=== PATIENT | male | born 1955 | race Caucasian/White ===

== ENCOUNTER 2017-02-26 13:16 | Day surgery (SDC) | payer OTHER ==
[~2017-02-26] VITALS: Ht 175.3 cm; Wt 101.8 kg
[~2017-02-26 13:16] MED LIST: AMLO-147 PO; ASPI81TA3 PO; ATOR20TA65 PO; CARV25TA79 PO; CHOL50009 PO; LISI10TA2 PO; PRAV40TA76 PO
[2017-02-26 14:54] VITALS: Ht 175.3 cm; Wt 101.8 kg
[2017-02-26 15:20] VITALS: BP 143/81; PULSE 71; RESP 22
[2017-02-26] MEDS ORDERED: PROPOFOL 20 ML ONE (15:54)
[2017-02-26 16:47] VITALS: BP 144/85; PULSE 70; RESP 12
--- NOTE | 2017-02-26 17:04 | GILP ---
DATE OF PROCEDURE: NAME OF PROCEDURES: 1. Colonoscopy and polypectomy. 2. Clipping of the polypectomy site to prevent bleeding. INDICATION FOR THE PROCEDURE: Mr. Lawanda Short is a 61-year-old male patient who noticed a c hange in the bowel habit with rectal bleeding. The patient was scheduled for colonoscopy for [facility] evaluation. The procedure and possible complications are well explained to the patient, he understood and consen breonna to the procedure. DESCRIPTION OF PROCEDURE: Under the influence of anesthesia, the colonoscope was carefully introduc ed in the rectum and under direct vision, it was advanced all the way to the cecum. FINDINGS: The patient had a large sigmoid colon polyp at 30 cm from the anus and it was removed usi ng the snare and electrocautery. The patient had heart disease and he was on aspirin so clipping of the polypectomy site was done to prevent bleeding. The patient was noted to have internal hemorrho ids. He tolerated the procedure very well and there was no complication from the procedure. At the end o f the procedure, he was awake with stable vital signs and he was discharged home to the care of his family. IMPRESSION: 1. Colonoscopy all the way to the cecum. 2. Sigmoid colon polyp was removed using the snare and electrocautery. 3. Clipping of the polypectomy site was done to prevent bleeding because the patient is on aspirin because of heart disease. 4. Internal hemorrhoids. PLAN: 1. Anusol-HC 2.5% cream at bedtime p.r.n. 2. Await histopathology report. 3. Followup colonoscopy in 5 years. Dictated By: VIDHYA PALMER/DAFNE Conf#: [id number] DID#: [id number]
== END 2017-02-26 17:30 | disposition home or self-care (01) ==
LOC: GIL 13:16
PROVIDERS: ATTEND Internal Medicine Gastroenterology
DX: Z12.11 Encounter for screening for malignant neoplasm of colon (principal); D12.5 Benign neoplasm of sigmoid colon; I25.10 Atherosclerotic heart disease of native coronary artery without angina pectoris; E78.5 Hyperlipidemia, unspecified; I10 Essential (primary) hypertension; Z95.1 Presence of aortocoronary bypass graft
CPT/HCPCS: 88305

== ENCOUNTER 2017-03-05 09:57 | Day surgery (SDC) | payer OTHER ==
[~2017-03-05] VITALS: Ht 175.3 cm; Wt 102.2 kg
[~2017-03-05 09:57] MED LIST changes: -PRAV40TA76 PO
[2017-03-05] MEDS ORDERED: AMLO1CAP12 PO (10:49)
[2017-03-05] MEDS ORDERED: ALBU8.5H3 INH (10:53)
[2017-03-05] MEDS ORDERED: ACLI400A2 IH (10:56)
[2017-03-05] MEDS ORDERED: ERGO2000 PO (10:56)
[2017-03-05] MEDS ORDERED: CARV25TA79 PO (10:57)
[2017-03-05] MEDS ORDERED: PRAV40TA76 PO (10:57)
[2017-03-05 11:10] VITALS: Ht 175.3 cm; Wt 102.2 kg
[2017-03-05 11:13] VITALS: BP 132/85; PULSE 72; RESP 16
== END 2017-03-05 11:20 | disposition home or self-care (01) ==
LOC: SDS 09:57
PROVIDERS: ATTEND Otolaryngology
DX: J34.2 Deviated nasal septum (principal); Z53.9 Procedure and treatment not carried out, unspecified reason

== ENCOUNTER 2017-05-25 10:28 | Inpatient (IN) | payer OTHER ==
[~2017-05-25] VITALS: Ht 175.3 cm; Wt 104.5 kg
[~2017-05-25 10:28] MED LIST changes: +ACLI400A2 IH; +ALBU8.5H3 INH; +AMLO1CAP12 PO; +AMLO5TAB4 PO; +ATEN50TA PO; +ATOR20TA38 PO; +BUME1TAB18 PO; +DEXL60CA2 PO; +ERGO2000 PO; +FURO-109 PO; +LISI-523 PO; +METO-448 PO; +POTA8TAB2 PO; +PRAV10TA43 PO; +PRAV40TA76 PO
[2017-05-25] MEDS ORDERED: ALBUTEROL 0.083% (NEB) 2.5 MG/3 ML AMP HHN STA (11:23)
[2017-05-25] MEDS ORDERED: IPRATROPIUM (NEB) 0.5 MG/2.5 ML AMP HHN ONE (11:30)
--- NOTE | 2017-05-25 12:49 | RADRPT ---
PROCEDURE: CT Chest without contrast. CLINICAL INDICATION: Shortness of breath, cough and hemoptysis TECHNIQUE: CT scan of the chest without contrast was performed on a multidetector high-resolution CT scanner. Coronal and sagittal reformatted images were obtained from the axial source images. The total exam CTDI equals 16.65 mGy and the total exam DLP equals 783.26 mGy-cm. One or more of the following dose reduction techniques were used: Automated exposure control. Adjustment of the mA and/or kV according to patient size. Use of iterative reconstruction technique. COMPARISON: CT chest 07/23/2015 FINDINGS: There is total collapse of the right lower lobe. There is an intraluminal lesion obstructing the ri ght lower lobe bronchus. No focal opacification, effusion, pneumothorax, edema, or nodules are seen. There is no pulmonary infiltrate. No mass lesion to suggest neoplasm is identified. The central tracheobronchial tree is clear. The mediastinum is unremarkable without evidence for mass or lymphadenopathy. The vascular structur es of the mediastinum are normal in course and caliber. Aortic vascular calcifications and coronary artery calcifications are present. The heart size is mildly enlarged without evidence for pericard ial thickening or effusion. There are postsurgical changes of CABG. The axillary regions, subpectoral regions, and supraclavicular regions are all unremarkable. Imagin g obtained through the upper abdomen reveals no acute abnormality. The surrounding osseous structur es are remarkable for degenerative spondylosis of the spine. No osteolytic or osteoblastic lesion i s detected. IMPRESSION: 1. Complete collapse of the right lower lobe. Intraluminal lesion obstructing the right lower lobe bronchus. Recommend bronchoscopy for further evaluation. 2. Mild cardiomegaly. 3. Aortic and coronary artery vascular calcifications. Status post CABG. RPTAT: BB .Efe Contreras MD, Date Time Electronically viewed and signed by .Eef Contreras MD, MD on 05/25/2017 12:49 .O/
--- NOTE | 2017-05-25 13:13 | ERA ---
ER Documentation Chief Complaint Date/Time DATE: 05/25/17 TIME: 13:07 Chief Complaint COUGH X 3 MONTHS AND COUGHED UP BLOOD TODAY HPI 61-year-old male with a history of CAD status post CABG, hypertension, presenting with a persistent cough for the past 8 months presenting today for hemoptysis. He has been coughing up clumps of blood. He has associated mild shortness of breath but no chest pain. He does complain of right flank pain intermittently as well. No fever, chills, weight loss. He does endorse night sweats recently. He has had multiple chest x-rays done by his primary care physician which did not show any abnormalities. He denies recent travel, immobilization, or surgeries. ROS All systems reviewed and are negative except as per history of present illness. Medications Home Meds Reported Medications Albuterol/Ipratropium* (Combivent Respimat*) 20-100 Mcg/Inh - 4 Gm Aer.w.adap, 1 PUFF INHALATION DAILY Y for WHEEZING AND SOB, #1 INHALER 05/25/17 Amlodipine Besylate* (Amlodipine Besylate*) 10 Mg Tablet, 10 MG PO DAILY, #30 TAB 05/25/17 Isosorbide Mononitrate* (Isosorbide Mononitrate*) 30 Mg Tab.er.24h, 30 MG PO DAILY, TAB 05/25/17 Losartan Potassium* (Losartan Potassium*) 100 Mg Tablet, 100 MG PO DAILY, TAB 05/25/17 Hydrochlorothiazide* (Hydrochlorothiazide*) 25 Mg Tab, 25 MG PO DAILY, #30 TAB 05/25/17 Pravastatin Sodium* (Pravastatin Sodium*) 40 Mg Tablet, 40 MG PO HS, TAB 03/05/17 Carvedilol* (Carvedilol*) 25 Mg Tablet, 25 MG PO BID, #60 TAB 03/05/17 Aclidinium [place] (Tudorza Pressair) 400 Mcg Aer.pow.ba, 400 MCG IH BID, EA 03/05/17 Aspirin* (Aspirin* Chew) 81 Mg Tab.chew, 81 MG PO DAILY, TAB.CHEW 02/15/16 Cholecalciferol* (Vitamin D*) 5,000 Unit Tablet, 5000 UNIT PO DAILY, TAB 02/15/16 Discontinued Reported Medications Cholecalciferol* (Vitamin D3*) 1,000 Unit Tablet, 1000 UNIT PO DAILY, TAB 05/25/17 Albuterol Sulfate* (Proair HFA*) 8.5 Gm Hfa.aer.ad, 2 PUFF INH Q4H Y for WHEEZING AND SOB, #1 INHALER 03/05/17 Amlodipine Besylate/Benazepril (Amlodipine-Benazepril 10-20 mg) 1 Each Capsule, 1 EACH PO DAILY, CAP 03/05/17 Lisinopril* (Lisinopril*) 10 Mg Tablet, 10 MG PO DAILY, #30 TAB 02/15/16 Allergies Allergies: Coded Allergies: No Known Allergy (Unverified , 05/25/17) PMhx/Soc Medical and Surgical Hx: pt denies Medical Hx History of Surgery: Yes (CABG 2014) Anesthesia Reaction: No Hx Neurological Disorder: No Hx Respiratory Disorders: Yes (WHEEZING) Hx Cardiac Disorders: Yes (HTN) Hx Psychiatric Problems: No Hx Miscellaneous Medical Probl: Yes (DEVIATED NAZAL SEPTUM) Hx Alcohol Use: No Hx Substance Use: No Hx Tobacco Use: No Smoking Status: Former smoker FmHx Family History: No diabetes Physical Exam Vitals Vital Signs Date Time Temp Pulse Resp B/P Pulse Ox O2 Delivery O2 Flow Rate FiO2 05/25/17 11:40 88 18 95 21 05/25/17 10:34 97.5 88 18 141/85 95 Physical Exam Const: No apparent distress, nontoxic, speaking in full sentences Head: Atraumatic Eyes: Normal Conjunctiva ENT: Normal External Ears, Nose and Mouth. No epistaxis. Posterior oropharynx normal with no bleeding Neck: Full range of motion.. No JVD. No meningismus. Resp: Clear to auscultation bilaterally, no wheezing or rales Cardio: Sternotomy scar noted. Regular rate and rhythm, no murmurs Abd: Soft, non tender, non distended. Normal bowel sounds Skin: No petechiae or rashes Back: No midline or flank tenderness Ext: No cyanosis, or edema. Evidence of left saphenous vein resection Neur: Awake and alert Psych: Normal Mood and Affect Result Diagram: 05/25/17 1345 05/25/17 1345 Results 24 hrs Laboratory Tests Test 05/25/17 13:45 White Blood Count 6.610^3/ul Red Blood Count 4.6310^6/ul Hemoglobin 13.6g/dl Hematocrit 40.2% Mean Corpuscular Volume 86.8fl Mean Corpuscular Hemoglobin 29.4pg Mean Corpuscular Hemoglobin Concent 33.8g/dl Red Cell Distribution Width 12.6% Platelet Count 49818^3/UL Mean Platelet Volume 8.8fl Neutrophils % 66.5% Lymphocytes % 22.5% Monocytes % 7.7% Eosinophils % 2.3% Basophils % 0.5% Nucleated Red Blood Cells % 0.0/100WBC Neutrophils # (Manual) 410^3/ul Lymphocytes # 1.510^3/ul Monocytes # 0.510^3/ul Eosinophils # 0.210^3/ul Basophils # 0.010^3/ul Nucleated Red Blood Cells # 0.010^3/ul Prothrombin Time 12.6Sec Prothrombin Time Ratio 1.0 INR International Normalized Ratio 0.94 Activated Partial Thromboplast Time 29.4Sec Sodium Level 148mmol/L Potassium Level 3.8mmol/L Chloride Level 99mmol/L Carbon Dioxide Level 32mmol/L Anion Gap 21 Blood Urea Nitrogen 9mg/dl Creatinine 0.71mg/dl Glucose Level 114mg/dl Calcium Level 9.3mg/dl Total Bilirubin 0.3mg/dl Direct Bilirubin 0.00mg/dl Indirect Bilirubin 0.3mg/dl Aspartate Amino Transf (AST/SGOT) 31IU/L Alanine Aminotransferase (ALT/SGPT) 46IU/L Alkaline Phosphatase 80IU/L Total Protein 7.9g/dl Albumin 4.5g/dl Globulin 3.40g/dl Albumin/Globulin Ratio 1.32 Current Medications Medications (Trade) Dose Ordered Sig/Arnulfo Route PRN Reason Start Time Stop Time Status Last Admin Dose Admin Albuterol (Proventil 0.083% (Neb)) 2.5 mg ONCE STAT [facility] 05/25/17 11:23 05/25/17 11:25 DC 05/25/17 11:36 Ipratropium [place] (Atrovent 0.02% (Neb)) 0.5 mg ONCE ONCE N 05/25/17 11:30 05/25/17 11:31 DC 05/25/17 11:36 Procedures/MDM EMERGENT LABS AND DIAGNOSTIC STUDIES: Lab Results above were reviewed and interpreted by me. CBC: no anemia or evidence of infection CMP: No evidence of significant electrolyte abnormality, renal failure, hypoglycemia, liver failure, or biliary obstruction Coags: Within normal limits Radiology Results as interpreted by Radiology below were reviewed by Gentry London MD: PROCEDURE: CT Chest without contrast. COMPARISON: CT chest 07/23/2015 FINDINGS: There is total collapse of the right lower lobe. There is an intraluminal lesion obstructing the right lower lobe bronchus. No focal opacification, effusion, pneumothorax, edema, or nodules are seen. There is no pulmonary infiltrate. No mass lesion to suggest neoplasm is identified. The central tracheobronchial tree is clear. The mediastinum is unremarkable without evidence for mass or lymphadenopathy. The vascular structures of the mediastinum are normal in course and caliber. Aortic vascular calcifications and coronary artery calcifications are present. The heart size is mildly enlarged without evidence for pericardial thickening or effusion. There are postsurgical changes of CABG. The axillary regions, subpectoral regions, and supraclavicular regions are all unremarkable. Imaging obtained through the upper abdomen reveals no acute abnormality. The surrounding osseous structures are remarkable for degenerative spondylosis of the spine. No osteolytic or osteoblastic lesion is detected. IMPRESSION: 1. Complete collapse of the right lower lobe. Intraluminal lesion obstructing the right lower lobe bronchus. Recommend bronchoscopy for further evaluation. 2. Mild cardiomegaly. 3. Aortic and coronary artery vascular calcifications. Status post CABG. RPTAT: BB .Efe Contreras MD, Date Time Electronically viewed and signed by .Efe Contreras MD, on 05/25/2017 12:49 Initial Nursing notes reviewed. Previous Medical Records requested via the Electronic Health Record. EMERGENCY DEPARTMENT COURSE / MEDICAL DECISION MAKING: This patient is presenting with a chronic cough and new onset hemoptysis. He is afebrile and hemodynamically stable with no hypoxia. On exam he is well- appearing. CT chest was ordered and showed evidence of a right lower lobe bronchial mass with complete collapse of the right lower lobe. I have a lower suspicion for pulmonary embolism, however this remains a possibility. I will defer further workup for PE to the inpatient team if they feel it is necessary. However the patient will need admission for bronchoscopy and further evaluation for malignancy. The patient and his family were updated on the plan and results were discussed. Accepting Care Team: Current data and ongoing care discussed. Time: Time of admission Primary Provider: Agusto Mora Consulting: none Outstanding Data: none Departure Diagnosis: Primary Impression: Hemoptysis Additional Impression: Lung mass Condition: DIA Hall MD May 25, 2017 13:12
[2017-05-25 13:56] LABS: BASOPHILS % 0.5 % (0.0-2.0); EOSINOPHILS # 0.2 10^3/ul (0.0-0.5); EOSINOPHILS % 2.3 % (0.0-7.0); HEMATOCRIT 40.2 % (42.0-52.0); HEMOGLOBIN 13.6 g/dl (14.0-18.0); LYMPHOCYTES # 1.5 10^3/ul (0.8-2.9); LYMPHOCYTES % 22.5 % (15.0-51.0); MEAN CORPUSCULAR HEMOGLOBIN 29.4 pg (29.0-33.0); MEAN CORPUSCULAR HGB CONC 33.8 g/dl (32.0-37.0); MEAN CORPUSCULAR VOLUME 86.8 fl (82.0-101.0); MEAN PLATELET VOLUME 8.8 fl (7.4-10.4); MONOCYTE # 0.5 10^3/ul (0.3-0.9); MONOCYTES % 7.7 % (0.0-11.0); NEUTROPHILS % 66.5 % (39.0-77.0); PLATELET COUNT 238 10^3/UL (140-415); RED BLOOD COUNT 4.63 10^6/ul (4.70-6.10); RED CELL DISTRIBUTION WIDTH 12.6 % (11.5-14.5); WHITE BLOOD COUNT 6.6 10^3/ul (4.8-10.8)
[2017-05-25 14:05] LABS: INR 0.94; PROTIME 12.6 Sec (12.2-14.2)
[2017-05-25 14:06] LABS: PARTIAL THROMBOPLASTIN TIME 29.4 Sec (25.0-35.0)
[2017-05-25 14:09] LABS: ALBUMIN 4.5 g/dl (3.3-4.9); ALBUMIN/GLOBULIN RATIO 1.32; BILIRUBIN,INDIRECT 0.3 mg/dl (0-1.1); BILIRUBIN,TOTAL 0.3 mg/dl (0.2-1.3); CALCIUM 9.3 mg/dl (8.4-10.2); CREATININE 0.71 mg/dl (0.61-1.24); POTASSIUM 3.8 mmol/L (3.5-5.1); TOTAL PROTEIN 7.9 g/dl (6.1-8.1)
[2017-05-25] MEDS ORDERED: ACETAMINOPHEN 325 MG TAB PO PRN (14:30)
[2017-05-25] MEDS ORDERED: ONDANSETRON 4 MG INJ IV PRN (14:30)
[2017-05-25 14:47] VITALS: TEMP 98.3
[2017-05-25] MEDS ORDERED: LOSA100T7 PO (15:13)
[2017-05-25] MEDS ORDERED: AMLO-147 PO (15:13)
[2017-05-25] MEDS ORDERED: ISOS30TA5 PO (15:13)
[2017-05-25] MEDS ORDERED: HYD25 PO (15:13)
[2017-05-25] MEDS ORDERED: IPRA4AER INHALATION (15:14)
[2017-05-25] MEDS ORDERED: CHOL100062 PO (15:14)
[2017-05-25 15:25] VITALS: Ht 175.3 cm; Wt 104.5 kg
[2017-05-25 15:30] VITALS: BP 132/86; PULSE 80; RESP 16
[2017-05-25 15:36] VITALS: PULSE 79
--- NOTE | 2017-05-25 16:18 | HP ---
Date/Time of Note Date/Time of Note DATE: 05/25/17 TIME: 16:13 Assessment/Plan VTE Prophylaxis VTE Prophylaxis Intervention: contraindicated Assessment/Plan Chief Complaint/Hosp Course 61 yo male with h/o CAD s/p CABG, hypertension, heavy smoking history who presents with hemotypsis and found to have RLL collapse wtih endobronchial lesion. Right lower lobe collapse, hemotpysis - Patient very stable from respiratory perspective - Most likely this is a malignancy, however foreign body, mucoid impaction, etc are also on ddx - NPO at midnight for bronchosocpy in AM Hypertension: - Can hold home meds for now CAD: - Hold aspirin, continue statin Discharge planning pending bronchosocpy tomorrow Problems: HPI/ROS Admit Date/Time Admit Date/Time May 25, 2017 at 14:02 Hx of Present Illness 61 yo male with h/o CAD s/p CABG, heavy smoking history presenting w hemotypsis Patient has had URI symptoms on and off since October. Has had numerous rounds of abx with improvement. Symtpoms more localized to upper airways however, but has had previosu dry cough with occasional scant hemotypsis. Then today, had large cough with about a quarter size amount of blood. Has recurred a couple times today. Denies weight loss, denies dysphagia, denies fevers, etc recently. 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
[2017-05-25 16:24] VITALS: PULSE 90
[2017-05-25 19:58] VITALS: BP 124/73; RESP 20
[2017-05-25 20:05] VITALS: PULSE 85
[2017-05-26] VITALS (12 sets, daily range): BP systolic 104–152; BP diastolic 52–94; PULSE 72–89; RESP 18–21
[2017-05-26 07:51] LABS: BASOPHILS % 0.5 % (0.0-2.0); EOSINOPHILS # 0.2 10^3/ul (0.0-0.5); EOSINOPHILS % 2.6 % (0.0-7.0); HEMATOCRIT 41.4 % (42.0-52.0); HEMOGLOBIN 13.7 g/dl (14.0-18.0); LYMPHOCYTES # 1.9 10^3/ul (0.8-2.9); LYMPHOCYTES % 28.6 % (15.0-51.0); MEAN CORPUSCULAR HGB CONC 33.1 g/dl (32.0-37.0); MEAN CORPUSCULAR VOLUME 87.5 fl (82.0-101.0); MEAN PLATELET VOLUME 9.2 fl (7.4-10.4); MONOCYTE # 0.5 10^3/ul (0.3-0.9); MONOCYTES % 8.3 % (0.0-11.0); NEUTROPHILS % 59.7 % (39.0-77.0); PLATELET COUNT 279 10^3/UL (140-415); RED BLOOD COUNT 4.73 10^6/ul (4.70-6.10); RED CELL DISTRIBUTION WIDTH 12.7 % (11.5-14.5); WHITE BLOOD COUNT 6.5 10^3/ul (4.8-10.8)
[2017-05-26 08:18] LABS: ALBUMIN 4.5 g/dl (3.3-4.9); ALBUMIN/GLOBULIN RATIO 1.25; BILIRUBIN,INDIRECT 0.5 mg/dl (0-1.1); BILIRUBIN,TOTAL 0.5 mg/dl (0.2-1.3); CALCIUM 9.5 mg/dl (8.4-10.2); CREATININE 0.72 mg/dl (0.61-1.24); POTASSIUM 3.6 mmol/L (3.5-5.1); TOTAL PROTEIN 8.1 g/dl (6.1-8.1)
[2017-05-26] MEDS: AMLODIPINE 10 MG TAB PO SCH (08:52)
--- NOTE | 2017-05-26 17:23 | PN ---
Date/Time of Note Date/Time of Note DATE: 05/26/17 TIME: 17:19 Assessment/Plan VTE Prophylaxis VTE Prophylaxis Intervention: contraindicated Lines/Catheters IV [facility] Saline Lock Urinary Cath still in place: No Assessment/Plan Chief Complaint/Hosp Course 61 yo male with h/o CAD s/p CABG, hypertension, heavy smoking history who presents with hemotypsis and found to have RLL collapse wtih endobronchial lesion. Right lower lobe collapse, hemotpysis - Patient very stable from respiratory perspective - Most likely this is a malignancy, however foreign body, mucoid impaction, etc are also on ddx - NPO at midnight for bronchosocpy in AM Hypertension: - Can hold home meds for now CAD: - Hold aspirin, continue statin Discharge planning pending bronchosocpy tomorrow Problems: Subjective 24 Hr Interval Summary Free Text/Dictation Patient kept NPO this AM and was upset not to have bronch but then very understanding after explanation Still trace hemoptysis, stable and comfortable Exam/Review of Systems Vital Signs Vitals Vital Signs Date Time Temp Pulse Resp B/P Pulse Ox O2 Delivery O2 Flow Rate FiO2 05/26/17 15:58 97.7 92 18 152/94 93 05/25/17 15:30 Room Air 05/25/17 11:40 21 Exam Constitutional: alert, No distress, No frail, No non-verbal, No obese, No oriented, No other, No well developed Psych: nl mood/affect, no complaints, No anxiety, No confusion, No depression, No other, No suicidal Head: No atraumatic, No hematomas, No lacerations, No normocephalic, No other Eyes: No EOMI, No PERRL, No fundi, disc, No icteric, No nl conjunctiva, No nl lids, No nl sclera, No other ENMT: No intubated, No mucosa pink and moist, No nl external ears & nose, No nl lips & teeth, No nl nasal mucosa & septum, No other, No tympanic membranes Neck: No bruits, No jvd, No masses, No non-tender, No nuchal rigidity, No other , No supple, No thyromegaly Respiratory: clear to auscultation, No congested cough, No crackles/rales, No diminished breath sounds, No intercostal retraction, No labored breathing, No normal air movement, No other, No respirations, No tactile fremitus, No wheezing Cardiovascular: regular rate and rhythm, No S3, No S4, No bruits, No diastolic murmur, No edema, No gallop, No irregular rhythm, No jugular venous distention (JVD), No murmurs/extra sounds, No nl pulses, No other, No rub, No systolic murmur Gastrointestinal: No ascites, No bowel sounds, No distended, No firm, No hepatomegaly, No mass, No nl liver, spleen, No non-tender, No other, No rebound or guarding, No soft, No splenomegaly, No surgical scars, No tender Genitourinary - Male: No CVA tenderness, No discharge, No nl penis, No nl scrotum, No other Musculoskeletal: nl extremities to inspection, No joint tenderness, No muscle tone, No muscle weakness, No nl gait and stance, No other, No range of motion, No spine non-tender, No swelling Extremities: normal pulses, No calf tenderness, No clubbing, No cyanosis, No edema, No other, No palpable cord, No pitting pedal edema, No tenderness Neurological: HANDKERCHIEF PRESSER II-XII intact Results Result Diagram: 05/26/17 0710 05/26/17 0710 Results 24 hrs Laboratory Tests Test 05/26/17 07:10 White Blood Count 6.5 Red Blood Count 4.73 Hemoglobin 13.7 L Hematocrit 41.4 L Mean Corpuscular Volume 87.5 Mean Corpuscular Hemoglobin 29.0 Mean Corpuscular Hemoglobin Concent 33.1 Red Cell Distribution Width 12.7 Platelet Count 279 Mean Platelet Volume 9.2 Neutrophils % 59.7 Lymphocytes % 28.6 Monocytes % 8.3 Eosinophils % 2.6 Basophils % 0.5 Nucleated Red Blood Cells % 0.0 Neutrophils # (Manual) 4 Lymphocytes # 1.9 Monocytes # 0.5 Eosinophils # 0.2 Basophils # 0.0 Nucleated Red Blood Cells # 0.0 Sodium Level 143 Potassium Level 3.6 Chloride Level 100 Carbon Dioxide Level 30 Anion Gap 17 H Blood Urea Nitrogen 9 Creatinine 0.72 Glucose Level 124 Calcium Level 9.5 Total Bilirubin 0.5 Direct Bilirubin 0.00 Indirect Bilirubin 0.5 Aspartate Amino Transf (AST/SGOT) 27 Alanine Aminotransferase (ALT/SGPT) 42 Alkaline Phosphatase 68 Total Protein 8.1 Albumin 4.5 Globulin 3.60 H Albumin/Globulin Ratio 1.25 Medications Medications Current Medications Amlodipine Besylate (Norvasc) 10 mg DAILY PO ; Start 05/26/17 at 09:00 Carvedilol (Coreg) 25 mg BID PO Last administered on 05/25/17t 20:52; Admin Dose 25 MG; Start 05/25/17 at 21:00 RODRICK GARCIA MD May 26, 2017 17:23
[2017-05-27] VITALS (20 sets, daily range): BP systolic 111–145; BP diastolic 63–87; PULSE 68–86; RESP 18–27
--- NOTE | 2017-05-27 04:16 | CONS ---
DATE OF ADMISSION: 05/25/2017 DATE OF CONSULTATION: 05/26/2017 REASON FOR CONSULTATION: Hemoptysis. Thank you, Dr. Mora, for this consultation. HISTORY OF PRESENT ILLNESS: This is a 61-year-old gentleman with history of coronary artery disease, status post coronary artery bypass graft surgery, who presents with increasing cough, congestion which has been on and off for the past 6 months, intermittent pneumonias requiring 3 courses of antibiotics. He has had increasing shortness of breath over the past few days with 2 episodes of hemoptysis (less than 5 mL each time, but fresh blood on each episode). He denies any fever or chills. No weight loss. No nausea. No vomiting. He had an extensive tobacco history. He smoked 1 pack per day since the age of 17. He quit smoking 2 years ago. No history of inhalational injury. No sick contacts. No history of TB that the patient is aware of; however, he has never been tested. PAST MEDICAL HISTORY: 1. Coronary artery disease, status post coronary artery bypass graft surgery. 2. Hypertension. 3. Hyperlipidemia. MEDICATION: Per chart. ALLERGIES: NONE. SOCIAL HISTORY: Alcohol as above. Tobacco as above. 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 PHYSICAL EXAMINATION: GENERAL APPEARANCE: Well-nourished, well-developed gentleman, comfortable at rest, in no acute distress. VITAL SIGNS: Currently afebrile. Pulse is 92, blood pressure 150/80, O2 sat 96 percent on room air. NECK: Supple. No JVD or lymphadenopathy. HEART: S1, S2. No added sounds or murmurs. CHEST: Diminished air entry bilaterally. ABDOMEN: Soft, nontender. No guarding or rebound. EXTREMITIES: No cyanosis, clubbing, or edema. NEUROLOGIC: Neurologically grossly intact. No focal deficits. IMAGING: Chest CT was reviewed. It shows complete collapse of right lower lobe with possible intraluminal lesion. LABORATORY: White count 6.5, hemoglobin 13.7, platelets 279. INR 0.93. Chemistry within normal limits. IMPRESSION: Recurrent pneumonias and now hemoptysis with radiographic evidence of possible endobronchial lesion in a patient with a significant tobacco history. PLAN: 1. Continue current medications. Aspirin on hold. 2. Schedule for bronchoscopy tomorrow for inspection and possible biopsy. 3. Low risk for TB given history and radiographic findings. Dictated By: Shai Epsinal MD /senthil/faith /Document#: [id number]
[2017-05-27] MEDS ORDERED: SUCCINYLCHOLINE CHLORIDE 100 MG/5 ML SYG IV ONE (07:00)
[2017-05-27] MEDS ORDERED: DESFLURANE 15 MIN ONE (07:00)
[2017-05-27] MEDS ORDERED: LIDOCAINE 2% (SDV) 5 ML INJ ONE (07:00)
[2017-05-27 07:01] LABS: BASOPHILS % 0.7 % (0.0-2.0); EOSINOPHILS # 0.2 10^3/ul (0.0-0.5); EOSINOPHILS % 2.7 % (0.0-7.0); HEMATOCRIT 38.5 % (42.0-52.0); HEMOGLOBIN 13.1 g/dl (14.0-18.0); LYMPHOCYTES # 1.9 10^3/ul (0.8-2.9); MEAN CORPUSCULAR HEMOGLOBIN 29.6 pg (29.0-33.0); MEAN CORPUSCULAR VOLUME 87.1 fl (82.0-101.0); MEAN PLATELET VOLUME 9.1 fl (7.4-10.4); MONOCYTE # 0.6 10^3/ul (0.3-0.9); MONOCYTES % 9.8 % (0.0-11.0); NEUTROPHILS % 53.6 % (39.0-77.0); PLATELET COUNT 257 10^3/UL (140-415); RED BLOOD COUNT 4.42 10^6/ul (4.70-6.10); RED CELL DISTRIBUTION WIDTH 12.4 % (11.5-14.5); WHITE BLOOD COUNT 5.8 10^3/ul (4.8-10.8)
[2017-05-27 07:18] LABS: INR 0.97; PROTIME 12.9 Sec (12.2-14.2)
[2017-05-27 07:19] LABS: PARTIAL THROMBOPLASTIN TIME 28.8 Sec (25.0-35.0)
[2017-05-27 07:26] LABS: ALBUMIN 3.8 g/dl (3.3-4.9); ALBUMIN/GLOBULIN RATIO 1.02; BILIRUBIN,INDIRECT 0.3 mg/dl (0-1.1); BILIRUBIN,TOTAL 0.3 mg/dl (0.2-1.3); CALCIUM 9.4 mg/dl (8.4-10.2); CREATININE 0.73 mg/dl (0.61-1.24); POTASSIUM 3.7 mmol/L (3.5-5.1); TOTAL PROTEIN 7.5 g/dl (6.1-8.1)
[2017-05-27] MEDS: AMLODIPINE 10 MG TAB PO SCH ×2 (09:00→14:17)
--- NOTE | 2017-05-27 09:00 | RADRPT ---
PROCEDURE: XR Chest. CLINICAL INDICATION: PRE OP EVAL TECHNIQUE: A single AP view of the chest was obtained. COMPARISON: CT chest dated 05/25/2017 FINDINGS: There is focal consolidation along the medial aspect of the right lower lobe. No pleural effusion o r pneumothorax is seen. The cardiomediastinal silhouette is within normal limits for size. Calcifi cations are seen within the aortic arch.RPTAT: GREHOM The osseous structures are unremarkable. IMPRESSION: 1. Right lower lobe consolidation. No significant interval change. 2. Aortic atherosclerosis. RPTAT: HH .Emerald Fuentes MD, MD Date Time Electronically viewed and signed by .Emerald Fuentes MD, MD on 05/27/2017 08:59 .G/
[2017-05-27] MEDS ORDERED: LIDOCAINE 1% (STERILE-PAK) 30 ML INJ ONE (11:01)
[2017-05-27] MEDS ORDERED: MIDAZOLAM 1 MG/ML 2 ML INJ ONE (11:12)
[2017-05-27] MEDS ORDERED: FENTAnyl 50 MCG/ML VIAL ONE ×2 (11:12→12:00)
[2017-05-27] MEDS ORDERED: CEFAZOLIN 1 GM INJ ONE (11:12)
[2017-05-27] MEDS ORDERED: ONDANSETRON 4 MG INJ ONE (11:12)
[2017-05-27] MEDS ORDERED: ROCURONIUM 50 MG INJ ONE (11:12)
[2017-05-27] MEDS ORDERED: NEOSTIGMINE 3 MG/3 ML SYRINGE ONE (11:12)
[2017-05-27] MEDS ORDERED: GLYCOPYRROLATE 0.4 MG INJ ONE (11:12)
[2017-05-27] MEDS ORDERED: DEXAMETHASONE 4 MG/ML 1 ML INJ ONE (11:12)
[2017-05-27] MEDS ORDERED: PROPOFOL 20 ML ONE (11:12)
[2017-05-27] MEDS ORDERED: EPINEPHrine 1 MG INJ ONE (11:39)
--- NOTE | 2017-05-27 13:09 | EN ---
Date/Time of Note Date/Time of Note DATE: 05/27/17 TIME: 13:04 Event Note Medicine Medicine Event Note Procedure note Procedure bronchoscopy with biopsies and lavage Indication right lung mass Date May 27, 2016 Description Patient was intubated sedated placed on mechanical ventilation. His blood pressure EKG pulse oximetry and capnometry were continuously monitored by anesthesia. Using flexible fiberoptic bronchoscope endotracheal tube was entered to the wilda which was noted to be in normal appearance the left lung was then entered. All orifices were noted to be patent mucosa was normal no abnormalities noted. Right lung was then entered. A endobronchial lesion was immediately obvious in the distal bronchus intermedius. Right upper lobe was inspected all 3 orifices were patent with no endobronchial lesions no abnormal mucosa. A pedunculated mass could be seen at the entrance of the right lower lobe right middle lobe. Lesion was noted to be vascular with easy bleeding and friable surface. The right middle lobe was entered and orifices were noted to be patent no endobronchial lesions. The scope could not be passed beyond this endobronchial lesion into the right lower lobe. Lesion was lavaged for bronchoalveolar lavage for cytology Gram stain culture AFB stain and culture for fungal staining culture. Following administration of epinephrine biopsies were attempted of vascular endobronchial tumor. Several biopsies were performed at the periphery of the lesion. Patient tolerated the procedure well without significant bleeding. Upon completion of procedure there was no active bleeding. Initial impression is either carcinoid tumor or non-small cell lung cancer. Patient was extubated transferred to recovery to be transferred to floor. He remains awake alert comfortable no hemodynamic instability no active bleeding. PABLO MORALES MD, [facility] May 27, 2017 13:09
--- NOTE | 2017-05-27 13:45 | OPR ---
Date/Time of Note Date/Time of Note DATE: 05/27/17 TIME: 13:37 Operative Report Free Text/Dictation Procedure note Procedure bronchoscopy with biopsies and lavage Indication right lung mass Date May 27, 2016 Description Patient was intubated sedated placed on mechanical ventilation. His blood pressure EKG pulse oximetry and capnometry were continuously monitored by anesthesia. Using flexible fiberoptic bronchoscope endotracheal tube was entered to the wilda which was noted to be in normal appearance the left lung was then entered. All orifices were noted to be patent mucosa was normal no abnormalities noted. Right lung was then entered. A endobronchial lesion was immediately obvious in the distal bronchus intermedius. Right upper lobe was inspected all 3 orifices were patent with no endobronchial lesions no abnormal mucosa. A pedunculated mass could be seen at the entrance of the right lower lobe right middle lobe. Lesion was noted to be vascular with easy bleeding and friable surface. The right middle lobe was entered and orifices were noted to be patent no endobronchial lesions. The scope could not be passed beyond this endobronchial lesion into the right lower lobe. Lesion was lavaged for bronchoalveolar lavage for cytology Gram stain culture AFB stain and culture for fungal staining culture. Following administration of epinephrine biopsies were attempted of vascular endobronchial tumor. Several biopsies were performed at the periphery of the lesion. Patient tolerated the procedure well without significant bleeding. Upon completion of procedure there was no active bleeding. Initial impression is either carcinoid tumor or non-small cell lung cancer. Patient was extubated transferred to recovery to be transferred to floor. He remains awake alert comfortable no hemodynamic instability no active bleeding. Anesthesia Type: general Estimated Blood Loss: 0 - 10 ml's Transfusion Required: no Specimens bronchoalveolar lavage RML biopsy of tumor Complications: no Pt Condition Post Procedure: stable Disposition: other PABLO MORALES MD, [facility] May 27, 2017 13:45
--- NOTE | 2017-05-27 15:04 | CONS ---
Date/Time of Note Date/Time of Note DATE: 05/27/17 TIME: 14:59 Consult Date/Type/Reason Admit Date/Time May 25, 2017 at 14:02 Initial Consult Date Type of Consultation: Pulmonary Subjective Patient comfortable following bronchoscopy. Awake alert oriented. Talking full complete sentences. Complaining of mild sore throat. Objective Vital Signs Date Time Temp Pulse Resp B/P Pulse Ox O2 Delivery O2 Flow Rate FiO2 05/27/17 14:33 98.3 86 18 135/85 91 05/27/17 13:20 Nasal Cannula 2.0 05/25/17 11:40 21 Intake and Output 05/26/17 05/26/17 05/27/17 15:00 23:00 07:00 Intake Total 500 ml 480 ml Balance 500 ml 480 ml Exam GENERAL: Well-nourished well-developed gentleman comfortable at rest VITAL SIGNS: per chart NECK: Supple. No JVD or lymphadenopathy. CARDIAC EXAM: S1, S2. No added sounds or murmurs. CHEST: clear bilaterally, No added sounds, rales or wheezes ABDOMEN: Soft, nontender. No guarding or rebound. EXTREMITIES: No cyanosis, clubbing or edema. NEUROLOGIC: Generalized weakness. No focal deficits. Results/Medications Result Diagram: 05/27/17 0558 05/27/17 0558 Results 24 hrs Laboratory Tests Test 05/27/17 05:58 White Blood Count 5.8 Red Blood Count 4.42 L Hemoglobin 13.1 L Hematocrit 38.5 L Mean Corpuscular Volume 87.1 Mean Corpuscular Hemoglobin 29.6 Mean Corpuscular Hemoglobin Concent 34.0 Red Cell Distribution Width 12.4 Platelet Count 257 Mean Platelet Volume 9.1 Neutrophils % 53.6 Lymphocytes % 33.0 Monocytes % 9.8 Eosinophils % 2.7 Basophils % 0.7 Nucleated Red Blood Cells % 0.0 Neutrophils # (Manual) 3 Lymphocytes # 1.9 Monocytes # 0.6 Eosinophils # 0.2 Basophils # 0.0 Nucleated Red Blood Cells # 0.0 Prothrombin Time 12.9 Prothrombin Time Ratio 1.0 INR International Normalized Ratio 0.97 Activated Partial Thromboplast Time 28.8 Sodium Level 147 H Potassium Level 3.7 Chloride Level 100 Carbon Dioxide Level 30 Anion Gap 21 H Blood Urea Nitrogen 12 Creatinine 0.73 Glucose Level 116 Calcium Level 9.4 Total Bilirubin 0.3 Direct Bilirubin 0.00 Indirect Bilirubin 0.3 Aspartate Amino Transf (AST/SGOT) 24 Alanine Aminotransferase (ALT/SGPT) 41 Alkaline Phosphatase 59 Total Protein 7.5 Albumin 3.8 Globulin 3.70 H Albumin/Globulin Ratio 1.02 Medications Current Medications Amlodipine Besylate (Norvasc) 10 mg DAILY PO Last administered on 05/27/17 14: 17; Admin Dose 10 MG; Start 05/26/17 at 09:00 Carvedilol (Coreg) 25 mg BID PO Last administered on 05/27/17 14:18; Admin Dose 25 MG; Start 05/25/17 at 21:00 Assessment/Plan Chief Complaint/Hosp Course Assessment 1. Endobronchial lesion status post bronchoscopy this morning shows a extremely vascular tumor obstructing the entrance to the right lower lobe and right middle lobe. This was likely the cause of his recurrent post obstructive pneumonia. Initial inspection suggestive of possible carcinoid tumor. Patient underwent bronchoscopy with biopsies and lavage. 2. History of extensive tobacco use currently not smoking. Plan 1. Monitor postop. 2. Pulmonary function testing in a.m. 3. Will require referral to thoracic surgery following biopsy results. Problems: PABLO MORALES MD, [facility] May 27, 2017 15:03
--- NOTE | 2017-05-27 16:59 | PN ---
Date/Time of Note Date/Time of Note DATE: 05/27/17 TIME: 16:57 Assessment/Plan VTE Prophylaxis VTE Prophylaxis Intervention: contraindicated Lines/Catheters IV C[facility] Type (from [facility] Peripheral IV Urinary Cath still in place: No Assessment/Plan Chief Complaint/Hosp Course 61 yo male with h/o CAD s/p CABG, hypertension, heavy smoking history who presents with hemotypsis and found to have RLL collapse wtih endobronchial lesion. Right lower lobe collapse, hemotpysis - s/p bronch showing endobronchial tumor suspicious for carcinoid vs malignant, f/u biopsy - PFTs tomorrow - CV surgery Hypertension: - Can hold home meds for now CAD: - Hold aspirin, continue statin Discharge planning pending, likely home tomorrow Problems: Subjective 24 Hr Interval Summary Free Text/Dictation Underwent bronchoscopy today Showed intraluminal tumor, well circumscribed. Some bleeding with probing. Biopsies taken Patient stable Exam/Review of Systems Vital Signs Vitals Vital Signs Date Time Temp Pulse Resp B/P Pulse Ox O2 Delivery O2 Flow Rate FiO2 05/27/17 14:33 98.3 86 18 135/85 91 05/27/17 13:20 Nasal Cannula 2.0 05/25/17 11:40 21 Intake and Output 05/26/17 05/26/17 05/27/17 15:00 23:00 07:00 Intake Total 500 ml 480 ml Balance 500 ml 480 ml Results Result Diagram: 05/27/17 0558 05/27/17 0558 Results 24 hrs Laboratory Tests Test 05/27/17 05:58 White Blood Count 5.8 Red Blood Count 4.42 L Hemoglobin 13.1 L Hematocrit 38.5 L Mean Corpuscular Volume 87.1 Mean Corpuscular Hemoglobin 29.6 Mean Corpuscular Hemoglobin Concent 34.0 Red Cell Distribution Width 12.4 Platelet Count 257 Mean Platelet Volume 9.1 Neutrophils % 53.6 Lymphocytes % 33.0 Monocytes % 9.8 Eosinophils % 2.7 Basophils % 0.7 Nucleated Red Blood Cells % 0.0 Neutrophils # (Manual) 3 Lymphocytes # 1.9 Monocytes # 0.6 Eosinophils # 0.2 Basophils # 0.0 Nucleated Red Blood Cells # 0.0 Prothrombin Time 12.9 Prothrombin Time Ratio 1.0 INR International Normalized Ratio 0.97 Activated Partial Thromboplast Time 28.8 Sodium Level 147 H Potassium Level 3.7 Chloride Level 100 Carbon Dioxide Level 30 Anion Gap 21 H Blood Urea Nitrogen 12 Creatinine 0.73 Glucose Level 116 Calcium Level 9.4 Total Bilirubin 0.3 Direct Bilirubin 0.00 Indirect Bilirubin 0.3 Aspartate Amino Transf (AST/SGOT) 24 Alanine Aminotransferase (ALT/SGPT) 41 Alkaline Phosphatase 59 Total Protein 7.5 Albumin 3.8 Globulin 3.70 H Albumin/Globulin Ratio 1.02 Medications Medications Current Medications Amlodipine Besylate (Norvasc) 10 mg DAILY PO Last administered on 05/27/17 14: 17; Admin Dose 10 MG; Start 05/26/17 at 09:00 Carvedilol (Coreg) 25 mg BID PO Last administered on 05/27/17 14:18; Admin Dose 25 MG; Start 05/25/17 at 21:00 RODRICK GARCIA MD May 27, 2017 16:58
[2017-05-28 02:08] VITALS: BP 118/70; RESP 18
[2017-05-28] MEDS ORDERED: ACETAMINOPHEN 325 MG TAB PO PRN (06:00)
[2017-05-28 08:11] VITALS: BP 110/64; RESP 18
[2017-05-28] MEDS: AMLODIPINE 10 MG TAB PO SCH (09:01)
--- NOTE | 2017-05-28 11:17 | CONS ---
Date/Time of Note Date/Time of Note DATE: 05/28/17 TIME: 11:15 Consult Date/Type/Reason Admit Date/Time May 25, 2017 at 14:02 Type of Consultation: Pulmonary Subjective Patient comfortable this morning mild chest discomfort but no hemoptysis. Ambulating without supplemental oxygen Objective Vital Signs Date Time Temp Pulse Resp B/P Pulse Ox O2 Delivery O2 Flow Rate FiO2 05/28/17 08:11 98.7 79 18 110/64 93 05/27/17 13:20 Nasal Cannula 2.0 05/25/17 11:40 21 Intake and Output 05/27/17 05/27/17 05/28/17 14:59 22:59 06:59 Intake Total 650 ml 880 ml 640 ml Balance 650 ml 880 ml 640 ml Exam GENERAL: VITAL SIGNS: per chart NECK: Supple. No JVD or lymphadenopathy. CARDIAC EXAM: S1, S2. No added sounds or murmurs. CHEST: clear bilaterally, No added sounds, rales or wheezes ABDOMEN: Soft, nontender. No guarding or rebound. EXTREMITIES: No cyanosis, clubbing or edema. NEUROLOGIC: Generalized weakness. No focal deficits. Results/Medications Result Diagram: 05/27/17 0558 05/27/17 0558 Medications Current Medications Amlodipine Besylate (Norvasc) 10 mg DAILY PO Last administered on 05/28/17 09: 01; Admin Dose 10 MG; Start 05/26/17 at 09:00 Carvedilol (Coreg) 25 mg BID PO Last administered on 05/28/17 09:01; Admin Dose 25 MG; Start 05/25/17 at 21:00 Acetaminophen (Tylenol Tab) 650 mg Q6H PRN PO PAIN AND OR ELEVATED TEMP Last administered on 05/28/17 05:49; Admin Dose 650 MG; Start 05/28/17 at 06:00 Assessment/Plan Chief Complaint/Hosp Course Assessment 1. Endobronchial lesion status post bronchoscopy this morning shows a extremely vascular tumor obstructing the entrance to the right lower lobe and right middle lobe. This was likely the cause of his recurrent post obstructive pneumonia. Initial inspection suggestive of possible carcinoid tumor. Patient underwent bronchoscopy with biopsies and lavage. 2. History of extensive tobacco use currently not smoking. Plan 1. Pulmonary function testing today 2. Extensive discussion with patient at bedside. Explained pulmonary and cardiothoracic follow-up. 3. I had a long discussion with patient's behavioral health case manager Irasema yesterday, explained to see cardiothoracic surgery follow-up. She states she has arranged authorization for evaluation by Dr.Azmi Hernandez next week. Patient also to be seen by myself in pulmonary office. Problems: PABLO MORALES MD, [facility] May 28, 2017 11:16
[2017-05-28 14:15] VITALS: BP 132/75; RESP 16
[2017-05-28] MEDS ORDERED: HYDROCODONE/APAP (5/325) TAB PO PRN (14:30)
--- NOTE | 2017-05-28 15:51 | DS ---
Date/Time of Note Date/Time of Note DATE: 05/28/17 TIME: 15:44 Discharge Summary Admission/Discharge Info Admit Date/Time May 25, 2017 at 14:02 Discharge Date/Time Discharge Diagnosis 1. 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 Espinal and Dr. Stoner 2. HTN, stable 3. Dyslipidemia, on statin 4. CAD, s/p CABG, stable Patient Condition: Stable Procedures bronchoscopy on 05/28/2017 Hx of Present Illness 61 yo male with h/o CAD s/p CABG, heavy smoking history presenting w hemotypsis Patient has had URI symptoms on and off since October. Has had numerous rounds of abx with improvement. Symtpoms more localized to upper airways however, but has had previosu dry cough with occasional scant hemotypsis. Then today, had large cough with about a quarter size amount of blood. Has recurred a couple times today. Denies weight loss, denies dysphagia, denies fevers, etc recently. Hospital Course Patient got bronchoscopy on 05/28/2017 that revealed an extremely vascular tumor obstructing the entrance to the right lower lobe and right middle lobe. This was likely the cause of his recurrent post obstructive pneumonia. Initial inspection suggestive of possible carcinoid tumor. Patient will follow up with Dr. Mckenzie for pathology and Dr. Stoner for surgery consultation outpatient. No more hemoptysis. I am holding his aspirin. [place] [id number] Radiology Main Line: [phone] DIAGNOSTIC IMAGING REPORT Patient: ALYSE BERG : 1955 Age: 61 Sex: M MR #: [id number] DOS: 05/25/17 1123 Ordering MD: LUCY MUHAMMAD MD Location: [facility] Room/Bed: PROCEDURE: CT Chest without contrast. CLINICAL INDICATION: Shortness of breath, cough and hemoptysis TECHNIQUE: CT scan of the chest without contrast was performed on a multidetector high-resolution CT scanner. Coronal and sagittal reformatted images were obtained from the axial source images. The total exam CTDI equals 16.65 mGy and the total exam DLP equals 783.26 mGy-cm. One or more of the following dose reduction techniques were used: Automated exposure control. Adjustment of the mA and/or kV according to patient size. Use of iterative reconstruction technique. COMPARISON: CT chest 07/23/2015 FINDINGS: There is total collapse of the right lower lobe. There is an intraluminal lesion obstructing the right lower lobe bronchus. No focal opacification, effusion, pneumothorax, edema, or nodules are seen. There is no pulmonary infiltrate. No mass lesion to suggest neoplasm is identified. The central tracheobronchial tree is clear. The mediastinum is unremarkable without evidence for mass or lymphadenopathy. The vascular structures of the mediastinum are normal in course and caliber. Aortic vascular calcifications and coronary artery calcifications are present. The heart size is mildly enlarged without evidence for pericardial thickening or effusion. There are postsurgical changes of CABG. The axillary regions, subpectoral regions, and supraclavicular regions are all unremarkable. Imaging obtained through the upper abdomen reveals no acute abnormality. The surrounding osseous structures are remarkable for degenerative spondylosis of the spine. No osteolytic or osteoblastic lesion is detected. IMPRESSION: 1. Complete collapse of the right lower lobe. Intraluminal lesion obstructing the right lower lobe bronchus. Recommend bronchoscopy for further evaluation. 2. Mild cardiomegaly. 3. Aortic and coronary artery vascular calcifications. Status post CABG. RPTAT: BB .Efe Contreras MD, MD Date Time Electronically viewed and signed by .Efe Contreras MD, MD on 05/25/2017 12:49 .O/ CC: LUCY MUHAMMAD MD Home Meds Reported Medications Albuterol/Ipratropium* (Combivent Respimat*) 20-100 Mcg/Inh - 4 Gm Aer.w.adap, 1 PUFF INHALATION DAILY Y for WHEEZING AND SOB, #1 INHALER 05/25/17 Amlodipine Besylate* (Amlodipine Besylate*) 10 Mg Tablet, 10 MG PO DAILY, #30 TAB 05/25/17 Isosorbide Mononitrate* (Isosorbide Mononitrate*) 30 Mg Tab.er.24h, 30 MG PO DAILY, TAB 05/25/17 Losartan Potassium* (Losartan Potassium*) 100 Mg Tablet, 100 MG PO DAILY, TAB 05/25/17 Hydrochlorothiazide* (Hydrochlorothiazide*) 25 Mg Tab, 25 MG PO DAILY, #30 TAB 05/25/17 Pravastatin Sodium* (Pravastatin Sodium*) 40 Mg Tablet, 40 MG PO HS, TAB 03/05/17 Carvedilol* (Carvedilol*) 25 Mg Tablet, 25 MG PO BID, #60 TAB 03/05/17 Aclidinium [place] (Tudorza Pressair) 400 Mcg Aer.pow.ba, 400 MCG IH BID, EA 03/05/17 Cholecalciferol* (Vitamin D*) 5,000 Unit Tablet, 5000 UNIT PO DAILY, TAB 02/15/16 Discontinued Reported Medications Aspirin* (Aspirin* Chew) 81 Mg Tab.chew, 81 MG PO DAILY, TAB.CHEW 02/15/16 Cholecalciferol* (Vitamin D3*) 1,000 Unit Tablet, 1000 UNIT PO DAILY, TAB 05/25/17 Albuterol Sulfate* (Proair HFA*) 8.5 Gm Hfa.aer.ad, 2 PUFF INH Q4H Y for WHEEZING AND SOB, #1 INHALER 03/05/17 Amlodipine Besylate/Benazepril (Amlodipine-Benazepril 10-20 mg) 1 Each Capsule, 1 EACH PO DAILY, CAP 03/05/17 Lisinopril* (Lisinopril*) 10 Mg Tablet, 10 MG PO DAILY, #30 TAB 02/15/16 Follow-up Plan Dr. Espinal in one week Dr. Stoner Primary Care Provider SANDY Chung MD May 28, 2017 15:51
[2017-05-28 15:56] LABS: TB-NIL 0.05 IU/mL
--- NOTE | 2017-05-29 17:08 | RADRPT ---
Vent Rate: 82 bpm RR Interval: 0 msec ID Interval: 144 msec QRS Duration: 92 msec QT Interval: 384 msec QTC Interval: 448 msec P-R-T [place]: 48 - 1 - 23 degrees Normal sinus rhythm Possible Left atrial enlargement Nonspecific ST abnormality Abnormal ECG Electronically Signed By: Juliocesar Knapp [id number]
== END 2017-05-28 16:58 | disposition home or self-care (01) | DRG 181 ==
LOC: FTE 10:28 → MS4 14:02 → PP2 05-26 18:01
PROVIDERS: ADMIT Internal Medicine; ATTEND Internal Medicine
PROC: 0B968ZX Drainage of Right Lower Lobe Bronchus, Via Natural or Artificial Opening Endoscopic, Diagnostic (ICD-10-PCS; 2017-05-27)
PROC: 0BBB8ZX Excision of Left Lower Lobe Bronchus, Via Natural or Artificial Opening Endoscopic, Diagnostic (ICD-10-PCS; principal; 2017-05-27 10:30)
DX: D38.1 Neoplasm of uncertain behavior of trachea, bronchus and lung (principal); R04.2 Hemoptysis; I10 Essential (primary) hypertension; J98.19 Other pulmonary collapse; Z95.1 Presence of aortocoronary bypass graft; Z87.891 Personal history of nicotine dependence
CPT/HCPCS: 36415; 71010; 71250; 80053; 85025; 85610; 85730; 86480; 87116; 88104; 88305; 88307; 93005; 94010; 94664; 94726; 94729; J0171; J0690; J1100; J2250; J2405; J2710; J3010; J7999

== ENCOUNTER 2017-08-05 10:41 | Day surgery (SDC) | payer OTHER ==
[2017-08-05] VITALS (7 sets, daily range): BP systolic 119–135; BP diastolic 79–96; PULSE 73–86; RESP 16–26; Ht 172.7 cm; Wt 95.7 kg
[~2017-08-05] VITALS: Ht 172.7 cm; Wt 95.7 kg
[~2017-08-05 10:41] MED LIST changes: -ALBU8.5H3 INH; -AMLO1CAP12 PO; -AMLO5TAB4 PO; -ASPI81TA3 PO; -ATEN50TA PO; -ATOR20TA38 PO; -ATOR20TA65 PO; -BUME1TAB18 PO; -DEXL60CA2 PO; -ERGO2000 PO; -FURO-109 PO; +HYDR25TA6 PO; +IPRA4AER INHALATION; +ISOS30TA5 PO; -LISI-523 PO; -LISI10TA2 PO; +LOSA100T7 PO; -METO-448 PO; -POTA8TAB2 PO; -PRAV10TA43 PO
[2017-08-05] MEDS ORDERED: CARSR60 PO (11:28)
[2017-08-05] MEDS ORDERED: ASPI-664 PO (11:29)
[2017-08-05] MEDS ORDERED: RIVA20TA PO (11:29)
--- NOTE | 2017-08-05 12:28 | HPN ---
Date/Time of Note Date/Time of Note DATE: 08/05/17 TIME: 12:28 Interval H&P Admission Note Pt. seen H&P reviewed: No system changes CHANEL ROTH MD Aug 05, 2017 12:28
--- NOTE | 2017-08-05 12:28 | HPN ---
Date/Time of Note Date/Time of Note DATE: 08/05/17 TIME: 12:28 Interval H&P Admission Note Pt. seen H&P reviewed: No system changes CHANEL ROHT MD Aug 05, 2017 12:28
[2017-08-05] MEDS ORDERED: HEPARIN 1000 UNITS/ML 10 ML INJ ONE (12:32)
[2017-08-05] MEDS ORDERED: LIDOCAINE 1% (MPF) 30 ML INJ ONE (12:32)
[2017-08-05] MEDS ORDERED: MIDAZOLAM 1 MG/ML 2 ML INJ ONE (13:04)
[2017-08-05] MEDS ORDERED: FENTAnyl 50 MCG/ML VIAL ONE (13:05)
[2017-08-05] MEDS ORDERED: ACETAMINOPHEN 1000MG/100ML IV 100 ML ONE (13:12)
[2017-08-05] MEDS ORDERED: CEFAZOLIN 1 GM INJ ONE (13:35)
--- NOTE | 2017-08-05 13:46 | SIPON ---
Date/Time of Note Date/Time of Note DATE: 08/05/17 TIME: 13:44 Operative Report Preoperative Diagnosis right lung cancer Postoperative Diagnosis same Operation/Procedure Performed reynaldo cath insertion right subclavian artery Surgeon see signature line plastic surgery assistant none Anesthesia: MAC Estimated blood loss: 0 - 10 ml's Transfusion Required none Specimen none Grafts/Implants none Complications none CHANEL ROTH MD Aug 05, 2017 13:46
--- NOTE | 2017-08-05 13:46 | SIPON ---
Date/Time of Note Date/Time of Note DATE: 08/05/17 TIME: 13:44 Operative Report Preoperative Diagnosis right lung cancer Postoperative Diagnosis same Operation/Procedure Performed reynaldo cath insertion right subclavian artery Surgeon see signature line pharmacy affairs assistant none Anesthesia: MAC Estimated blood loss: 0 - 10 ml's Transfusion Required none Specimen none Grafts/Implants none Complications none CHANEL ROTH MD Aug 05, 2017 13:46
--- NOTE | 2017-08-05 13:46 | SIPON ---
Date/Time of Note Date/Time of Note DATE: 08/05/17 TIME: 13:44 Operative Report Preoperative Diagnosis right lung cancer Postoperative Diagnosis same Operation/Procedure Performed reynaldo cath insertion right subclavian artery Surgeon see signature line child life assistant none Anesthesia: MAC Estimated blood loss: 0 - 10 ml's Transfusion Required none Specimen none Grafts/Implants none Complications none CHANEL ROTH MD Aug 05, 2017 13:46
[2017-08-05] MEDS ORDERED: morphine 10 MG INJ IM PRN (14:00)
--- NOTE | 2017-08-05 15:47 | OPR ---
DATE OF OPERATION: 08/05/2017 PREOPERATIVE DIAGNOSIS: Right lung cancer, need for chemotherapy. POSTOPERATIVE DIAGNOSIS: Right lung cancer, need for chemotherapy. PROCEDURE: Insertion of a right subclavian vein Port-A-Cath. SURGEON: Chanel Stoner MD ANESTHESIA: 1% lidocaine with IV sedation. INDICATION: The patient is a 61-year-old gentleman who underwent a pulmonary resection for stage II b lung cancer. He is in need of chemotherapy and now needs a Port-A-Cath inserted. The benefits, r isks, alternatives were explained. He understood and consented. DESCRIPTION OF PROCEDURE: The patient was brought to the operating room, was placed in supine posit ion. He was given some IV sedation. He was then prepped and draped in usual sterile fashion. Two grams of Ancef were given. We then inserted a needle into the right subclavian vein. The wire was guided under fluoroscopy. A subcutaneous pocket was created and then we placed the dilator sheath o corbin the wire and the Port-A-Cath was cut to length. We removed the dilator and the wire and placed the Port-A-Cath through the sheath, the sheath was removed. The port was then placed underneath the subcutaneous tissue and secured to the fascia using 3-0 Vicryl and we were able to aspirate and flu sh easily. It was confirmed by fluoroscopy to be in the atrium. We then closed the subcutaneous ti ssue using 3-0 Vicryl for the deep layer and 4-0 Monocryl for the skin. Dressings were applied. Marco delgado was taken to recovery room in stable condition. Dictated By: CHANEL CASTELLANOS/DAFNE Conf#: [id number] DID#: [id number]
--- NOTE | 2017-08-05 16:52 | RADRPT ---
PROCEDURE: Intraoperative imaging of the chest. CLINICAL INDICATION: Check line placement. TECHNIQUE: Images of the chest were obtained in the operating room with an image intensifier. No radiologist was in attendance. 2 images of the chest were obtained with the image intensifier. Fl uoroscopy time is 48 seconds. COMPARISON: Chest x-ray dated 05/26/2017. FINDINGS: There are sternal wires. The first image demonstrates a guidewire entering the right subclavian vein with the tip in the right atrium. The second and final image demonstrates a Port-A-Cath entering vi a the right subclavian vein with the tip in the cavoatrial junction region. IMPRESSION: 1. Intraoperative imaging of the chest. RPTAT: QQ .Emmanuel Merritt MD, Date Time Electronically viewed and signed by .Emmanuel Merritt MD, on 08/05/2017 16:52 .R/
--- NOTE | 2017-08-05 16:58 | RADRPT ---
PROCEDURE: XR Chest. CLINICAL INDICATION: Line placement. TECHNIQUE: Single frontal view. COMPARISON: 05/26/2017. FINDINGS: There is a right subclavian vein tunneled implanted port central venous catheter with the tip in the cavoatrial junction region. There is elevation of the right hemidiaphragm. The lungs are otherwise clear. The heart is enlarged. There are sternal wires and mediastinal clips. There is no pleural effusion. There is no pneumothorax. IMPRESSION: 1. Central venous catheter noted with the tip in the cavoatrial junction region. 2. Elevation of the right hemidiaphragm. 3. Cardiomegaly. 4. Previous median sternotomy. 5. No pneumothorax. 6. Otherwise normal chest radiograph. RPTAT: QQ .Emmanuel Merritt MD, Date Time Electronically viewed and signed by .Emmanuel Merritt MD, on 08/05/2017 16:58 .R/
== END 2017-08-05 15:05 | disposition home or self-care (01) ==
LOC: SDS 10:41
PROVIDERS: ATTEND Thoracic Surgery (Cardiothoracic Vascular Surgery)
DX: Z45.2 Encounter for adjustment and management of vascular access device (principal); C34.91 Malignant neoplasm of unspecified part of right bronchus or lung
CPT/HCPCS: 36561; 71010; 71020; C1788; J0131; J0690; J1644; J2250; J3010